=== PATIENT | male | born 1955 | race Caucasian/White ===

== ENCOUNTER 2016-07-06 17:50 | Emergency (ER) | payer OTHER ==
[~2016-07-06] VITALS: Ht 180.3 cm; Wt 160.3 kg
[~2016-07-06 17:50] MED LIST: ADVAIR 500/501 DISK IH; ARTHROTEC 501 TABLET PO; ARTHROTEC 751 TABLET PO; ATORVASTATIN CA40 MG PO; ATROVENT H200 INHALA IH; BACLOFEN10 MG PO; BENADRYL25 MG PO; BENTYL20 MG PO; CEFUROXIME500 MG PO; CLEOCIN300 MG PO; COUMADIN1 MG PO; COUMADIN10 MG PO; CYCLOBENZAPRINE10 M1 PO; DIAZEPAM10 MG; DIAZEPAM10 MG PO; DICLOXACILLIN500 MG PO; DULERA 100 MCG/13 GM IH; DULERA 200 MCG/13 GM IH; DUONEB 2.5-0.5 M3 ML AEROSOL; FLEXERIL10 MG PO; Flagyl PO; GLIMEPIRIDE2 MG PO; GLUCOPHAGE1000 MG PO; GLUCOPHAGE500 MG PO; HEPARIN SO5000 UNITS SC; IRON325 MG PO; KEFLEX500 MG PO; KLOR-CON M2020 MEQ PO; LANTUS 10100 UNITS/ SC; LASIX40 MG PO; LISINOPRIL10 MG PO; LOPRESSOR50 MG PO; LORZONE750 MG PO; LOSARTAN POTASS25 MG PO; LOVENOX150 MG/1 M SC; Lactinex,Floranex PO; MEDROL32 MG PO; METFORMIN HCL850 MG PO; METOPROLOL SUCC50 MG PO; OPANA ER15 MG PO; OXAYDO5 MG PO; OXYCODONE HCL30 MG PO; OXYCODONE HCL5 MG PO; OXYCODONE5 MG PO; PLAVIX75 MG PO; POTASSIUM CHLO20 ME2 PO; PREDNISONE20 MG PO; PRINIVIL10 MG; PRINIVIL10 MG PO; PROAIR HFA8.5 GM IH; PROMETHAZINE HC25 M1 PO; PROZAC10 MG PO; PULMICORT FLE180 MCG IH; QUESTRAN4 GM/PACKE PO; RANITIDINE HCL150 M1 PO; SENNA PLUS TAB1 EACH PO; SILVADENE20 GM TP; SPIRIVA RESPIMAT4 GM IH; SYMBICORT60 INHALAT IH; TOPROL XL50 MG PO; TYLENOL EXTRA500 MG PO; VALIUM10 MG PO; VENLAFAXINE HCL75 MG PO; VENTOLIN HFA18 GM IH; VICODIN HP 11 TABLET PO; VITAMIN B-122500 MCG SL; WARFARIN SODIU7.5 MG PO; WARFARIN SODIUM3 MG PO; WARFARIN SODIUM4 MG PO; XARELTO15 MG PO; ZESTORETIC 20-1 EAC1 PO; ZOFRAN ODT4 MG PO; ZOFRAN4 MG PO; [UNRECOGNIZED DRUG - OTHER]; [UNRECOGNIZED DRUG - REMARK]
[2016-07-06 18:15] LABS: HEMATOCRIT 41.7 % (38.0-50.0); MCH 30.1 PG (29.0-34.0); MCHC 33.8 G/DL (30.0-36.0); MCV 88.9 FL (86-99); PLATELET COUNT 148 K/uL (156-360); RBC DIS.WIDTH-CV 14.9 % (11.8-14.6); RBC DIS.WIDTH-SD 47.6 % (39-53); RED BLOOD COUNT 4.69 M/uL (4.00-5.50); WHITE BLOOD COUNT 5.4 K/uL (4.1-10.2)
[2016-07-06 18:25] LABS: CHLORIDE 104 mEq/L (99-109); POTASSIUM 4.5 mEq/L (3.7-5.4); SODIUM 137 mEq/L (136-147)
[2016-07-06 18:27] LABS: GLUCOSE 244 mg/dL (70-99)
[2016-07-06 18:29] LABS: ANION GAP 10 MEQ/L (2-14)
[2016-07-06 18:31] LABS: GFR ESTIMATE (CALCULATED) > 59 mL/min/
[2016-07-06 18:32] LABS: UREA NITROGEN (BUN) 15 mg/dL (9-23)
[2016-07-06] MEDS ORDERED: MEDROL DOSEPAK4 MG PO (20:42)
[2016-07-06] MEDS ORDERED: ZITHROMAX Z-PA250 MG PO (20:42)
[2016-07-06 21:02] VITALS: BP 141/74
== END 2016-07-06 21:03 | disposition home or self-care (01) ==
LOC: EXP 17:50 → EME 17:50 → EXP 21:03
DX: J44.1 Chronic obstructive pulmonary disease with (acute) exacerbation (principal); E11.9 Type 2 diabetes mellitus without complications; Z79.4 Long term (current) use of insulin; Z79.899 Other long term (current) drug therapy; Z95.5 Presence of coronary angioplasty implant and graft; Z88.6 Allergy status to analgesic agent; Z88.3 Allergy status to other anti-infective agents
CPT/HCPCS: 71020; 80048; 83880; 85027; 94640; 99281; 99284; J7512

== ENCOUNTER → 2017-07-22 | Outpatient (CLI) | payer OTHER ==
[~2017-07-22] MED LIST changes: +MEDROL DOSEPAK4 MG PO; +ZITHROMAX Z-PA250 MG PO
== END | disposition home or self-care (01) ==
LOC: NUC 09:55
PROC: C7101ZZ Planar Nuclear Medicine Imaging of Bone Marrow using Technetium 99m (Tc-99m) (ICD-10-PCS; principal; 2017-07-22)
DX: R93.7 Abnormal findings on diagnostic imaging of other parts of musculoskeletal system (principal); M19.012 Primary osteoarthritis, left shoulder; M19.032 Primary osteoarthritis, left wrist; M19.031 Primary osteoarthritis, right wrist; M19.072 Primary osteoarthritis, left ankle and foot; M19.071 Primary osteoarthritis, right ankle and foot; Z96.611 Presence of right artificial shoulder joint; Z96.651 Presence of right artificial knee joint
CPT/HCPCS: 78315; A9503

== ENCOUNTER → 2018-02-01 | Outpatient (CLI) | payer OTHER | END | disposition home or self-care (01) | LOC: NUC 01-31 10:00 | DX: R93.7 Abnormal findings on diagnostic imaging of other parts of musculoskeletal system (principal); M19.012 Primary osteoarthritis, left shoulder; M19.032 Primary osteoarthritis, left wrist; M19.031 Primary osteoarthritis, right wrist; M19.041 Primary osteoarthritis, right hand; M47.894 Other spondylosis, thoracic region; M47.896 Other spondylosis, lumbar region; M19.072 Primary osteoarthritis, left ankle and foot; M19.071 Primary osteoarthritis, right ankle and foot; Z96.653 Presence of artificial knee joint, bilateral; Z96.642 Presence of left artificial hip joint; Z96.611 Presence of right artificial shoulder joint; M25.461 Effusion, right knee | CPT/HCPCS: 78315; A9503 ==